=== PATIENT | male | born 1975 | race Two or more races ===

== ENCOUNTER 2020-01-27 11:08 | Emergency (ER) | payer OTHER ==
[~2020-01-27] VITALS: Ht 170.2 cm; Wt 97.0 kg
[2020-01-27] MEDS ORDERED: FLUORESCEIN OPHTHALMIC 1 MG STRIP ONE (11:28)
[2020-01-27] MEDS ORDERED: PROPARACAINE OPHTH 0.5%, 15ML ONE (11:28)
[2020-01-27] MEDS ORDERED: EYE WASH SOLUTION 120ML ONE (11:34)
== END 2020-01-27 14:03 | disposition home or self-care (01) ==
LOC: ED 11:56 → MERGE 11:56 → UNMERGE 11:56 → ED 14:03
DX: T15.02XA Foreign body in cornea, left eye, initial encounter (principal); X58.XXXA Exposure to other specified factors, initial encounter; Y93.89 Activity, other specified; Y92.89 Other specified places as the place of occurrence of the external cause; Y99.8 Other external cause status
CPT/HCPCS: 65222; 99284

== ENCOUNTER 2020-09-26 20:32 | Emergency (ER) | payer BC, OTHER ==
[~2020-09-26] VITALS: Ht 167.6 cm; Wt 92.3 kg
[2020-09-26] MEDS ORDERED: DIPH,PERTUSS(ACELL),TET VAC/PF 0.5 ML IM-VACC ONE (21:00)
[2020-09-26] MEDS ORDERED: LIDOCAINE 1%-EPI 1:100K, 20ML SQ ONE (21:00)
--- NOTE | 2020-09-27 00:11 | NUR ---
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 STEADY UPON AMBULATION.
[2020-09-27] MEDS ORDERED: DIPH,PERTUSS(ACELL),TET VAC/PF 0.5 ML IM-VACC ONE (00:19)
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
[2020-09-27] MEDS ORDERED: NEOSPORIN OINT. PKT 1 PACKET ONE (00:44)
[2020-09-27 01:12] VITALS: BP 130/93
== END 2020-09-27 01:15 | disposition home or self-care (01) ==
LOC: ED 22:51
DX: S81.012A Laceration without foreign body, left knee, initial encounter (principal); F17.210 Nicotine dependence, cigarettes, uncomplicated; W01.0XXA Fall on same level from slipping, tripping and stumbling without subsequent striking against object, initial encounter; Y93.79 Activity, other specified sports and athletics; Y92.410 Unspecified street and highway as the place of occurrence of the external cause; Y99.8 Other external cause status
CPT/HCPCS: 12032; 90471; 90715; 99284

== ENCOUNTER 2020-10-06 15:48 | Emergency (ER) | payer BC ==
[~2020-10-06] VITALS: Ht 167.6 cm; Wt 95.0 kg
[2020-10-06 16:00] VITALS: BP 141/89
== END 2020-10-06 16:44 | disposition home or self-care (01) ==
LOC: ED 16:15
DX: S81.012D Laceration without foreign body, left knee, subsequent encounter (principal); X58.XXXD Exposure to other specified factors, subsequent encounter
CPT/HCPCS: 99281